=== PATIENT | male | born 1960 | race Caucasian/White ===

== ENCOUNTER 2017-08-29 11:27 | Emergency (ER) | payer BC, OTHER ==
[~2017-08-29] VITALS: Ht 157.5 cm; Wt 68.1 kg
[~2017-08-29 11:27] MED LIST: DIVA500T7 PO; LACO200T2 PO; LAMO25TA PO; LEVE-5 PO; PHEN100C PO; PHEN200C PO
[2017-08-29 11:28] VITALS: Ht 157.5 cm; Wt 68.1 kg
[2017-08-29] MEDS ORDERED: METOCLOPRAMIDE 10 MG INJ IV STA (11:49)
[2017-08-29] MEDS ORDERED: SOD CHLORIDE 0.9% 1,000 ML IV STA (11:49)
[2017-08-29] MEDS ORDERED: LIDOCAINE/MYLANTA 40 ML BTL PO STA (11:49)
--- NOTE | 2017-08-29 11:51 | ERD ---
ER Documentation Chief Complaint Chief Complaint abdominal pain , vomititng - hx of seizures HPI This is a 57-year-old male with a history of seizures who is presenting with abdominal pain, nausea and nonbilious nonbloody vomiting that began last night and persisted this morning. The patient does have this happen occasionally, but he was concerned because he is unable to take his antiseizure medication at home. The patient does not recall any abnormal food intake. He does not endorse any reheated rice, undercooked meats, seafood, unwashed vegetables/ greens, uncooked eggs. The patient describes generalized abdominal discomfort and cramping associated with his nausea. He does not endorse any changes to bowel movements. He has had increased urinary frequency recently, but no burning or pain or bleeding. The patient denies feeling sick recently. The patient denies fever or chills. The patient has had no headache or vision changes. The patient does not endorse neck or back pain. The patient denies lightheadedness or dizziness. The patient has had no chest pain or shortness of breath or trouble breathing. The patient has had no focal deficits. The patient has had no weakness or numbness or tingling to the face or extremities. ROS All systems reviewed and are negative except as per history of present illness. Medications Home Meds Active Scripts Ondansetron Hcl* (Zofran*) 4 Mg Tablet, 8 MG PO Q6H for NAUSEA AND/OR VOMITING, #20 TAB Prov:JAMISON VALENZUELA MD 08/29/17 Reported Medications Lacosamide (Vimpat) 200 Mg Tablet, 200 MG PO BID, TAB 08/29/17 Sertraline Hcl* (Zoloft*) 100 Mg Tablet, 100 MG PO DAILY, #30 TAB 08/29/17 Atorvastatin Calcium* (Atorvastatin Calcium*) 20 Mg Tablet, 20 MG PO QHS, #30 TAB 08/29/17 Benazepril Hcl* (Benazepril Hcl*) 10 Mg Tablet, 10 MG PO DAILY, #30 TAB 08/29/17 Phenytoin* Sodium Extended (Dilantin*) 200 Mg Capsule, 200 MG PO HS, CAP 04/17/16 Phenytoin* Sodium Extended (Dilantin*) 100 Mg Capsule, 300 MG PO QAM, CAP 04/17/16 Divalproex Sodium* (Depakote*) 500 Mg Tablet.dr, 1000 MG PO QPM, #90 TAB 04/17/16 Divalproex Sodium* (Depakote*) 500 Mg Tablet.dr, 1500 MG PO QAM, #120 TAB 04/17/16 Discontinued Reported Medications Levetiracetam* (Keppra*) 500 Mg Tablet, 500 MG PO DAILY, TAB 04/17/16 Lamotrigine* (Lamotrigine*) 25 Mg Tablet, 25 MG PO DAILY, TAB 04/17/16 Lacosamide (Vimpat) 200 Mg Tablet, 200 MG PO DAILY, TAB 04/17/16 Allergies Allergies: Coded Allergies: No Known Allergy (Unverified , 08/29/17) PMhx/Soc History of Surgery: No Anesthesia Reaction: No Hx Neurological Disorder: Yes (Seizure disorder) Hx Respiratory Disorders: No Hx Cardiac Disorders: No Hx Psychiatric Problems: No Hx Miscellaneous Medical Probl: No Hx Alcohol Use: No Hx Substance Use: No Hx Tobacco Use: No FmHx Family History: No coronary disease, No diabetes Physical Exam Vitals Vital Signs Date Time Temp Pulse Resp B/P Pulse Ox O2 Delivery O2 Flow Rate FiO2 08/29/17 15:34 98.3 86 20 115/78 98 Room Air 08/29/17 15:00 98.3 94 20 112/76 95 Room Air 08/29/17 11:28 98.3 99 19 142/85 95 Physical Exam Const: No apparent distress, well-developed, well-nourished Head: Normocephalic, Atraumatic Eyes: Normal Conjunctiva. Extraocular movements intact. Pupils equal, round and reactive to light ENT: Normal External Ears, Nose and Mouth. Neck: Full range of motion. No meningismus. Resp: Clear to auscultation bilaterally, No wheezes, rales or rhonchi Cardio: Regular rate and rhythm. No murmurs, rubs or gallops Abd: + General abdominal discomfort, soft, non distended. Normal bowel sounds Skin: No petechiae or rashes Back: No midline tenderness. No CVA tenderness Ext: No cyanosis, or edema Neur: Awake and alert, oriented 4. Cranial nerves intact. No facial droop. Normal strength, sensation and coordination. Psych: Normal Mood and Affect Result Diagram: 08/29/17 1150 08/29/17 1150 Results 24 hrs Laboratory Tests Test 08/29/17 11:50 08/29/17 13:25 White Blood Count 10.310^3/ul Red Blood Count 5.1410^6/ul Hemoglobin 15.6g/dl Hematocrit 45.6% Mean Corpuscular Volume 88.7fl Mean Corpuscular Hemoglobin 30.4pg Mean Corpuscular Hemoglobin Concent 34.2g/dl Red Cell Distribution Width 13.3% Platelet Count 11422^3/UL Mean Platelet Volume 9.1fl Neutrophils % 88.3% Lymphocytes % 5.9% Monocytes % 5.1% Eosinophils % 0.2% Basophils % 0.2% Nucleated Red Blood Cells % 0.0/100WBC Neutrophils # 9.110^3/ul Lymphocytes # 0.610^3/ul Monocytes # 0.510^3/ul Eosinophils # 0.010^3/ul Basophils # 0.010^3/ul Nucleated Red Blood Cells # 0.010^3/ul Sodium Level 144mmol/L Potassium Level 4.1mmol/L Chloride Level 103mmol/L Carbon Dioxide Level 28mmol/L Anion Gap 17 Blood Urea Nitrogen 25mg/dl Creatinine 0.81mg/dl Glucose Level 118mg/dl Calcium Level 8.8mg/dl Total Bilirubin 0.2mg/dl Direct Bilirubin 0.00mg/dl Indirect Bilirubin 0.2mg/dl Aspartate Amino Transf (AST/SGOT) 28IU/L Alanine Aminotransferase (ALT/SGPT) 40IU/L Alkaline Phosphatase 82IU/L Total Protein 7.9g/dl Albumin 4.4g/dl Globulin 3.50g/dl Albumin/Globulin Ratio 1.25 Lipase 214U/L Urine Color YELLOW Urine Clarity CLEAR Urine pH 7.0 Urine Specific [place] 1.024 Urine Ketones NEGATIVEmg/dL Urine Nitrite NEGATIVEmg/dL Urine Bilirubin NEGATIVEmg/dL Urine Urobilinogen NEGATIVEmg/dL Urine Leukocyte Esterase NEGATIVELeu/ul Urine Hemoglobin NEGATIVEmg/dL Urine Glucose NEGATIVEmg/dL Urine Total Protein NEGATIVEmg/dl Current Medications Medications (Trade) Dose Ordered Sig/Srinivas Route PRN Reason Start Time Stop Time Status Last Admin Dose Admin Sodium Chloride (NS) 1,000 ml @ 1,000 mls/hr Q1H STAT IV 08/29/17 11:49 08/29/17 12:48 DC 08/29/17 12:16 Metoclopramide HCl (Reglan) 10 mg ONCE STAT IV 08/29/17 11:49 08/29/17 11:50 DC 08/29/17 12:11 Miscellaneous Medication (Gi Cocktail (2)) 40 ml ONCE STAT PO 08/29/17 11:49 08/29/17 11:50 DC 08/29/17 12:11 Diphenhydramine HCl (Benadryl) 25 mg ONCE ONCE IV 08/29/17 12:00 08/29/17 12:01 DC 08/29/17 12:11 Famotidine (Pepcid Iv) 20 mg ONCE ONCE IV 08/29/17 15:00 08/29/17 15:01 DC 08/29/17 15:07 Procedures/[facility] The patient's presentation warrants further investigation. The patient has mild general abdominal discomfort without any specific exquisite tenderness. The patient does not have any evidence of peritonitis. The patient does not have any palpable pulsatile mass, and I have low suspicion for AAA. The patient does not have any left lower quadrant tenderness, and I have low suspicion for diverticulosis or diverticulitis. The patient does not have any right lower quadrant tenderness, and I have low suspicion for appendicitis. The patient does not have left upper quadrant tenderness. I have low suspicion for pancreatitis. The patient does not have any flank tenderness. He does not have gross hematuria. I have decreased suspicion for nephrolithiasis or renal colic. Does not have right upper quadrant tenderness, and I have low suspicion for gallstones, cholecystitis or biliary colic. The patient does not have clinical symptoms concerning for mesenteric ischemia or ischemic colitis. LABS The patient's blood work was obtained and reviewed. The patient's CBC shows no leukocytosis. The patient is afebrile and does not appear systemically ill. I do not suspect a systemic infection. The patient is not anemic today. The patient's platelet count is unremarkable. The patient's CMP shows no signs of metabolic or electrolyte emergencies. The patient does have a mild elevation of his BUN, that could be correlated with dehydration. The patient was given IV fluids in the emergency department. The patient has unremarkable renal and hepatic function testing. IMAGING CT abd/pelvis 1. Limited, noncontrast CT of the abdomen and pelvis. No acute intra- abdominal abnormality identified. 2. Scattered bilateral ground-glass interstitial opacities may reflect small airways inflammation or infection. 3. Small fat-containing left inguinal hernia. Electronically viewed and signed by .Paola Sow MD, MD on 08/29/2017 15 :18 TREATMENT/DISPOSITION The patient was given IV fluids, Pepcid, Benadryl, Reglan with significant improvement of his symptoms. There is a possibility of gastritis versus gastroenteritis in this patient given his overall presentation, but it is difficult to make these diagnoses in the emergency department. The patient CT of the abdomen was overall unremarkable. I do not suspect pneumonia given the patient's lack of symptoms. At this time, I feel that the patient stable for discharge. The patient will need follow-up with his primary care physician in 2-3 days. The patient will be given a prescription for Zofran to help with his nausea. He is to continue taking the rest of his medications as prescribed. The patient will be given strict precautions with which to return to the emergency department. The patient's blood pressure was elevated at greater than 120/80 while in the emergency department. The patient was otherwise stable with no evidence of hypertensive urgency or emergency or end organ damage. The patient does not require admission for blood pressure control. I have discussed with the patient the risks of hypertension. I have advised the patient to follow up with the primary care physician for outpatient monitoring and treatment for hypertension in 2-3 days. I have instructed the patient to return to the ER for any new or worsening symptoms including chest pain, shortness of breath, headache, blurred vision, confusion, nausea, vomiting or LOC. Disclaimer: Inadvertent spelling and grammatical errors are likely due to EHR/ dictation software use and do not reflect on the overall quality of patient care. Note that the electronic time recorded on this note does not necessarily reflect the actual time of the patient encounter. Departure Diagnosis: Primary Impression: Abdominal pain Abdominal location: epigastric Qualified Code: R10.13 - Epigastric pain Additional Impression: Nausea & vomiting Vomiting type: unspecified Vomiting Intractability: non-intractable Qualified Code: R11.2 - Non-intractable vomiting with nausea, unspecified vomiting type Condition: JAMISON Witt MD Aug 29, 2017 11:51
[2017-08-29] MEDS ORDERED: DIPHENHYDRAMINE 50 MG INJ IV ONE (12:00)
[2017-08-29] MEDS ORDERED: BENA10TA48 PO (12:06)
[2017-08-29] MEDS ORDERED: ATOR20TA38 PO (12:07)
[2017-08-29] MEDS ORDERED: SERT100T PO (12:07)
[2017-08-29] MEDS ORDERED: LACO200T2 PO (12:08)
[2017-08-29 12:12] LABS: BASOPHILS % 0.2 % (0.0-2.0); EOSINOPHILS % 0.2 % (0.0-7.0); HEMATOCRIT 45.6 % (42.0-52.0); HEMOGLOBIN 15.6 g/dl (14.0-18.0); LYMPHOCYTES # 0.6 10^3/ul (0.8-2.9); LYMPHOCYTES % 5.9 % (15.0-51.0); MEAN CORPUSCULAR HEMOGLOBIN 30.4 pg (29.0-33.0); MEAN CORPUSCULAR HGB CONC 34.2 g/dl (32.0-37.0); MEAN CORPUSCULAR VOLUME 88.7 fl (82.0-101.0); MEAN PLATELET VOLUME 9.1 fl (7.4-10.4); MONOCYTE # 0.5 10^3/ul (0.3-0.9); MONOCYTES % 5.1 % (0.0-11.0); NEUTROPHIL # 9.1 10^3/ul (1.6-7.5); NEUTROPHILS % 88.3 % (39.0-77.0); PLATELET COUNT 270 10^3/UL (140-415); RED BLOOD COUNT 5.14 10^6/ul (4.70-6.10); RED CELL DISTRIBUTION WIDTH 13.3 % (11.5-14.5); WHITE BLOOD COUNT 10.3 10^3/ul (4.8-10.8)
[2017-08-29 12:21] LABS: ALBUMIN 4.4 g/dl (3.3-4.9); ALBUMIN/GLOBULIN RATIO 1.25; BILIRUBIN,INDIRECT 0.2 mg/dl (0-1.1); BILIRUBIN,TOTAL 0.2 mg/dl (0.2-1.3); CALCIUM 8.8 mg/dl (8.4-10.2); CREATININE 0.81 mg/dl (0.61-1.24); POTASSIUM 4.1 mmol/L (3.5-5.1); TOTAL PROTEIN 7.9 g/dl (6.1-8.1)
[2017-08-29 13:41] LABS: ADD UMIC NO; UR ASCORBIC ACID NEGATIVE (NEGATIVE); UR BILIRUBIN (Dip) NEGATIVE (NEGATIVE); UR BLOOD (Dip) NEGATIVE (NEGATIVE); UR CLARITY CLEAR (CLEAR); UR COLOR YELLOW (YELLOW); UR GLUCOSE (Dip) NEGATIVE (NEGATIVE); UR KETONES (Dip) NEGATIVE (NEGATIVE); UR LEUKOCYTE ESTERASE (Dip) NEGATIVE Leu/ul (NEGATIVE); UR NITRITE (Dip) NEGATIVE (NEGATIVE); UR SPECIFIC GRAVITY (Dip) 1.024 (1.003-1.030); UR TOTAL PROTEIN (Dip) NEGATIVE (NEGATIVE); UR UROBILINOGEN (Dip) NEGATIVE (NEGATIVE)
[2017-08-29] MEDS ORDERED: FAMOTIDINE 20 MG INJ IV ONE (15:00)
[2017-08-29] MEDS ORDERED: ONDA4TAB8 PO (15:16)
--- NOTE | 2017-08-29 15:18 | RADRPT ---
PROCEDURE: CT Abdomen and Pelvis without contrast. CLINICAL INDICATION: Abdominal pain. TECHNIQUE: Routine axial tomographic images of the abdomen and pelvis were obtained from the domes of the diaphragm to the symphysis pubis. The patient was scanned withoutoral or intravenous contra st. Coronal and sagittal reformatted images were obtained from the axial source images. Images were reviewed on a high-resolution PACS workstation. The total exam CTDI equals 9.45 mGy and the total e xam DLP equals 598.86 mGy-cm. One or more of the following dose reduction techniques were used: Au tomated exposure control, adjustment of the mA and / or kV according to patient size, or use of iter ative reconstruction technique. DICOM images are available. COMPARISON: None. FINDINGS: The visualized portions of the lung bases demonstrate scattered bilateral ground-glass opacities. Evaluation of the intra-abdominal solid organs is somewhat limited on this noncontrast examination. The liver appears normal in size. There is no intra or extrahepatic biliary dilatation. The gall bladder is unremarkable by CT criteria. The spleen, pancreas, and adrenal glands are unremarkable. The kidneys are symmetric in size. No renal, ureteral, or bladder calculi are identified. No perine phric inflammatory changes are identified. The urinary bladder is grossly unremarkable. The bowel demonstrates normal course and caliber. There is no evidence of bowel obstruction. The a ppendix is normal in appearance. No intraperitoneal free fluid, free air or abscess is identified. The pelvic organs are grossly unremarkable. No retroperitoneal, mesenteric, or inguinal lymphadeno rj is identified. The aorta is normal in caliber. There is a small fat-containing left inguinal h ernia. The osseous structures demonstrate mild degenerative changes of the spine with multilevel facet arth ropathy. No significant subcutaneous soft tissue abnormalities are seen. IMPRESSION: 1. Limited, noncontrast CT of the abdomen and pelvis. No acute intra-abdominal abnormality identif ied. 2. Scattered bilateral ground-glass interstitial opacities may reflect small airways inflammation o r infection. 3. Small fat-containing left inguinal hernia. RPTAT: HH .Paola Sow MD, MD Date Time Electronically viewed and signed by .Paola Sow MD, on 08/29/2017 15:18 .G/
[2017-08-29 15:34] VITALS: BP 115/78; PULSE 86; RESP 20; TEMP 98.3
== END 2017-08-29 16:22 | disposition home or self-care (01) ==
LOC: E/R 11:27
DX: R10.13 Epigastric pain (principal); R11.2 Nausea with vomiting, unspecified
CPT/HCPCS: 36415; 74176; 80053; 81003; 83690; 85025; 96374; 96375; J1200; J2765; J7030; Z7502; Z7610

== ENCOUNTER 2018-04-29 11:28 | Emergency (ER) | END 2018-04-29 13:27 | disposition home or self-care (01) ==

== ENCOUNTER 2018-05-05 19:47 | Observation (INO) | END 2018-05-06 18:46 | disposition home or self-care (01) ==

== ENCOUNTER 2018-07-08 06:09 | Day surgery (SDC) | END 2018-07-08 13:22 | disposition home or self-care (01) ==